=== PATIENT | male | born 1950 | race Caucasian/White ===

== ENCOUNTER 2017-07-31 21:25 | Emergency (ER) | payer OTHER ==
[2017-07-31 21:34] VITALS: RESP 18; TEMP 99.1; O2SAT 96
[2017-07-31] MEDS ORDERED: NS 1,000 ML IV ONE (22:06)
[2017-07-31 22:24] LABS: % IMMATURE GRANULYOCYTES 0.1 % (0.0-1.1); ABSOLUTE IMMATURE GRANULOCYTES 0.01 10^3/uL (0.00-0.10); ADD DIFF? NO; ADD MORPH? NO; ADD SCAN? NO; ATYPICAL LYMPHOCYTE FLAG 0 (0-99); FRAGMENT RBC FLAG 0 (0-99); HEMATOCRIT 43.9 % (40.0-51.0); LEFT SHIFT FLG 0 (0-99); LIPEMIA HEMOLYSIS FLAG 90 (0-99); MEAN CELL HEMOGLOBIN 30.2 pg (27.9-34.1); MEAN CELL HEMOGLOBIN CONCENTR. 34.2 g/dL (32.4-36.7); MEAN CELL VOLUME 88.3 fL (81.5-99.8); MEAN PLATELET VOLUME 8.6 fL (8.7-11.7); PLATELET CLUMPS FLAG 40 (0-99); PLATELET COUNT 264 10^3/uL (150-400); RED BLOOD CELL COUNT 4.97 10^6/uL (4.40-6.38); RED CELL DISTRIBUTION WIDTH 13.1 % (11.5-15.2)
[2017-07-31 22:31] LABS: INR 0.94 (0.83-1.16); PROTIME(PATIENT) 12.5 SEC (12.0-15.0)
[2017-07-31 22:32] LABS: ANION GAP 16 mEq/L (8-16); CALCIUM 9.4 mg/dL (8.5-10.4); CARBON DIOXIDE 27 mEq/l (22-31); CHLORIDE 102 mEq/L (97-110); CREATININE 1.1 mg/dL (0.7-1.3); GLOMERULAR FILTRATION RATE > 60; GLUCOSE 95 mg/dL (70-100); POTASSIUM 4.2 mEq/L (3.5-5.2); SODIUM 145 mEq/L (134-144)
--- NOTE | 2017-07-31 22:42 | EDPHY ---
H & P Stated Complaint: rectal bleeding x 30 min Time Seen by Provider: 07/31/17 21:38 HPI/ROS: This patient presents with 30 min of rectal bleeding-bright red blood. He explains that he had a normal bowel movement of normal consistency without pain and when he wipes noticed bright blood on the tissue. He has had external hemorrhoids before with small streaks of blood but never significant bleeding as he is having now. He reports that he stuffed toilet paper in the anal area to slow the bleeding and came in for evaluation. He feels slightly lightheaded while standing but admits that some of this may be anxiety from his symptoms. He has no other associated symptoms. He drove himself here by private vehicle for further evaluation. ROS: Constitutional: No significant fatigue or fevers. No other constitutional symptoms HEENT: No complaints Pulmonary: No shortness of breath. Cardiovascular: Patient has occasional heart palpitations for brief. The time usual less than a minute or 2 that he can usually resolved by coughing. This been attributed to AFib or flutter that he easily converts. He had only takes aspirin for this with had a benign workup in the past. GI: The patient has chronic intermittent mild lower belly pain with no recent changes in the patterns are intensity of pain which is generally mild. He had a CT scan of the belly within the past year to work this up with no significant findings other than some diverticulum. He also has prostatic hypertrophy : No dysuria, frequency or urgency. Integumentary: No complaints Neuro: No complaints 10 point ROS is otherwise negative Source: Patient Exam Limitations: No limitations - Personal History Current Tetanus/Diphtheria Vaccine: Yes Current Tetanus Diphtheria and Acellular Pertussis (TDAP): Yes - Medical/Surgical History Hx Asthma: No Hx Chronic Respiratory Disease: No Hx Diabetes: No Hx Cardiac Disease: No Hx Renal Disease: No Hx Cirrhosis: No Hx Alcoholism: No Hx HIV/AIDS: No Hx Splenectomy or Spleen Trauma: No Other PMH: biLateral hernia surgery, orthopedic surgeries, A FIB, SELF CONVERTS , prostate problem, colonic polyps 7 years ago on colonoscopy - Social History Smoking Status: Never smoked Alcohol Use: Occasionally Drug Use: None - Physical Exam Exam: Vital signs normal exception of mild hypertension General Appearance: Pleasant 67-year-old male no acute distress Alert, no distress. Eyes: Pupils equal and round no pallor or injection. ENT, Mouth: Mucous membranes moist. Respiratory: There are no retractions, lungs are clear to auscultation. Cardiovascular: Regular rate and rhythm. Gastrointestinal: Abdomen is soft and nontender, no masses, bowel sounds normal. Rectal exam: Small nonbleeding external hemorrhoid at 3 o'clock in lithotomy position. There is mild active bleeding the the appears to be from an internal hemorrhoid that is evident just proximal to the dentate line on exam. The patient has no tenderness on exam. The guaiac test is positive Neurological: GCS 15 with no focal deficits. Skin: Warm and dry, no rashes. Extremities are symmetrical, full range of motion. Psychiatric: Mood and affect normal DIFFERENTIAL DIAGNOSIS: After history and physical exam differential diagnosis was considered for internal hemorrhoid, colonic polyp, colon CA ache or other source of lower GI bleed. Constitutional: Initial Vital Signs Temperature (C) 37.3 C 07/31/17 21:33 Heart Rate 94 07/31/17 21:33 Respiratory Rate 18 07/31/17 21:33 Blood Pressure 160/66 H 07/31/17 21:33 O2 Sat (%) 96 07/31/17 21:33 O2 Delivery Mode Room Air Allergies/Adverse Reactions: Penicillins Allergy (Severe, Verified 06/04/12 17:53) Swelling/neck,face,throat sulfamethoxazole [From Bactrim] Allergy (Intermediate, Verified 06/04/12 17:53) Rash trimethoprim [From Bactrim] Allergy (Intermediate, Verified 06/04/12 17:53) Rash Home Medications: Medication Instructions Recorded Aspirin 81 DAILY 07/31/17 Docusate Sodium [Colace 100 MG (*)] 100 mg PO BID #30 cap 07/31/17 Medical Decision Making ED Course/Re-evaluation: IV, normal saline bolus x1 L Review of labs reveals a normal CBC, normal basic metabolic panel, normal coags Discussion: Patient with bright red blood per rectum that appears to be coming from an internal hemorrhoid. He does not have anemia or other concerning findings I explained that usually this bleeding will resolve without intervention within 24 hr. He will follow up with Dr. Bustos,[facility] this week & he understands the need to return to the emergency department should he have any significant worsening symptoms despite the treatment plan. I Did prescribe Colace stool softeners that he is not straining to have a bowel movement in worsening hemorrhoids. - Data Points Laboratory Results: Laboratory Results 07/31/17 22:15 07/31/17 22:15 Medications Given: Discontinued Medications Sodium Chloride (Ns) 1,000 mls @ 0 mls/hr IV EDNOW ONE; Wide Open PRN Reason: Protocol Stop: 07/31/17 22:07 Last Admin: 07/31/17 22:18 Dose: 1,000 mls Departure - Departure Disposition: Home, Routine, Self-Care Clinical Impression: Internal hemorrhoid, bleeding Condition: Good Instructions: Hemorrhoids (ED), Rectal Bleeding (ED) Additional Instructions: Diagnosis: Internal hemorrhoid with rectal bleeding Have no anemia today. Plan: Drink plenty fluids Colace stool softener and Metamucil to keep stools soft the do not have to strain for bowel movements. Cause in underwear for bleeding if needed. Typically this bleeding will resolve without further intervention over the course of 1 or [address] Bustos [facility] specialist to arrange close follow-up appointment for further evaluation. Return emergency department for any significant worsening despite treatment plan. Referrals: Nati Trevizo [Primary Care Provider] - As per Instructions Juan Bustos MD [Medical Doctor] - As per Instructions Prescriptions: Docusate Sodium [Colace 100 MG (*)] 100 mg PO BID #30 cap
[2017-07-31 22:52] VITALS: BP 144/88; PULSE 75
== END 2017-07-31 23:23 | disposition home or self-care (01) ==
LOC: CED 21:25
DX: K64.8 Other hemorrhoids (principal); E86.9 Volume depletion, unspecified
CPT/HCPCS: 80048-PO; 82270-PO; 85025-PO; 85610-PO; 85730-PO

== ENCOUNTER 2017-10-11 11:36 | Emergency (ER) | payer OTHER ==
[2017-10-11 11:40] VITALS: TEMP 97.9
--- NOTE | 2017-10-11 11:55 | CPEKG ---
Heart Rate: 77 RR Interval: 779 P-R Interval: 148 QRSD Interval: 88 QT Interval: 372 QTC Interval: 421 P Reliance: 44 QRS Reliance: 53 T Wave Reliance: 38 EKG Severity - NORMAL ECG - EKG Impression: SINUS RHYTHM Electronically Signed By: Joe Peoples 11-Oct-2017 20:31:59
[2017-10-11 12:26] LABS: PLATELET COUNT 274 10^3/uL (150-400)
[2017-10-11 12:42] VITALS: RESP 16
--- NOTE | 2017-10-11 12:55 | EDPHY ---
H & P Stated Complaint: 1 week sob/dizzyness with hx atrial tachycardia Time Seen by Provider: 10/11/17 12:34 HPI/ROS: CHIEF COMPLAINT: Short of breath, fatigue, lightheaded HISTORY OF PRESENT ILLNESS: This is a 67-year-old male with a history of intermittent atrial tachycardia and hyperlipidemia who presents concerned about intermittent episodes of chest pain. The chest pain is sharp, located in the left mid to upper chest, not related to any activity, and brief when it occurs. He has had this pain before but it is occurring more frequently this week. He also notes that he has had increasing fatigue and is lightheaded with a sensation of being a bit off balance intermittently. He is also winded when he goes up a flight of stairs. All this is new to him. It seems to be worsening over the last week. He was diagnosed with atrial tachycardia decades ago after wearing a Holter monitor. He continues to have intermittent episodes of a rapid or irregular heart beat that resolve on their own. He is not currently experiencing a rapid heartbeat. He is not currently experiencing chest pain. He has not had calf pain or swelling. No recent travel or immobility. He has a family history that is positive for venous thromboembolism. His father at age 60 of what was presumed to be a myocardial infarction. He has not seen his primary care physician for about 2 years. She recently relocated and he currently does not have a PCP. He has seen Dr. Paulette Landa and Dr. Tate. In addition, he notes a frontal headache. He has a history of migraines but this headache is somewhat different in nature. It occurs on and off. Tylenol and aspirin help with headache seems to return. No visual changes, numbness, weakness, confusion, difficulty with speech, head trauma, or fever. He takes 1- 2 aspirin daily. REVIEW OF SYSTEMS: A ten point review of systems was performed and is negative with the exception of the items mentioned in the HPI. Past medical history: 1. 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 Atrial tachycardia, paroxysmal 3. Hyperlipidemia 4. Migraine headaches 5. BPH Past surgical history: 1. Bilateral inguinal hernia repair 2. Laser prostate surgery 3. Orthopedic surgeries Family history: As per HPI Social history: He has been laid off from [employer]. He drinks 2 glasses of wine daily, sometimes more. He does not use tobacco products or illicit drugs. General Appearance: Alert. Vital signs reviewed. Blood pressure at triage was 141/110, repeat blood pressure 121/87. Eyes: Pupils equal and round, no conjunctival injection, no discharge. Anicteric. ENT, Mouth: Mucous membranes are moist, no oropharyngeal erythema or edema. Neck: No lymphadenopathy, supple. Respiratory: Lungs are clear to auscultation; no wheezes, rales, or rhonchi. Cardiovascular: Regular rate and rhythm; no murmur, rub, or gallop. Gastrointestinal: Abdomen is soft and nontender, no masses or organomegaly, bowel sounds normal. Skin: Warm and dry, no rashes on exposed skin, normal color. Back: Nontender to palpation over the thoracolumbar spine. No CVAT. Extremities: No lower extremity edema, no calf tenderness or swelling. Neurological: Alert and oriented. Moving all four extremities easily and equally. Cranial nerves II through XII are examined and are intact (visual acuity not tested). Strength is 5 over 5 bilaterally with testing of all major motor groups. Sensation is intact to light touch over all 4 extremities. Deep tendon reflexes are 2+ in the biceps and knees bilaterally. Gait is normal. [id number] is performed accurately. Psychiatric: Normal affect. - Personal History Current Tetanus/Diphtheria Vaccine: Unsure - Medical/Surgical History Hx Asthma: No Hx Chronic Respiratory Disease: No Hx Diabetes: No Hx Cardiac Disease: Yes Hx Renal Disease: No Hx Cirrhosis: No Hx Alcoholism: No Hx HIV/AIDS: No Hx Splenectomy or Spleen Trauma: No Other PMH: biLateral hernia surgery, orthopedic surgeries, A FIB, SELF CONVERTS , prostate problem, colonic polyps 7 years ago on colonoscopy - Social History Smoking Status: Never smoked Constitutional: Initial Vital Signs Temperature (C) 36.6 C 10/11/17 11:38 Heart Rate 93 10/11/17 11:38 Respiratory Rate 18 10/11/17 11:38 Blood Pressure 141/110 H 10/11/17 11:38 O2 Sat (%) 97 10/11/17 11:38 O2 Delivery Mode Room Air Allergies/Adverse Reactions: Penicillins Allergy (Severe, Verified 10/11/17 11:38) Swelling/neck,face,throat sulfamethoxazole [From Bactrim] Allergy (Intermediate, Verified 10/11/17 11:38) Rash trimethoprim [From Bactrim] Allergy (Intermediate, Verified 10/11/17 11:38) Rash Home Medications: Medication Instructions Recorded Aspirin 81 DAILY 07/31/17 Docusate Sodium [Colace 100 MG (*)] 100 mg PO BID #30 cap 07/31/17 Medical Decision Making - Diagnostics EKG Interpretation: EKG sinus rhythm with a rate of 77. No acute ischemic changes. ED Course/Re-evaluation: 57-year-old with intermittent chest pain, this description of which is somewhat atypical for pain of cardiac origin. Initial troponin is normal. EKG is without ischemic changes. HEART score is 3 putting him at 1.7% risk of major acute coronary event within the next 6 weeks. D-dimer is negative, making PE unlikely. Wells score for PE puts him at low risk for PE. Is not tachypneic, tachycardic, or hypoxic in the emergency department. He was ambulated with oxygen and maintained oxygen saturations of over 92%. Chest x-ray is negative for pneumonia he does not have any signs or symptoms of infection. I feel that he can safely follow up as an outpatient and he is agreeable to this plan. 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 Danger signs are reviewed with him. Differential Diagnosis: Chest pain including but not limited to myocardial ischemia, pulmonary embolus, chest wall pain, pleural inflammation and pulmonary infectious causes. - Data Points Laboratory Results: Laboratory Results 10/11/17 11:55 10/11/17 11:55 Departure - Departure Disposition: Home, Routine, Self-Care Clinical Impression: Dyspnea on exertion Headache Qualifiers: Headache type: tension-type Headache chronicity pattern: acute headache Intractability: not intractable Qualified Code(s): G44.209 - Tension-type headache, unspecified, not intractable Chest pain Qualifiers: Chest pain type: other chest pain Qualified Code(s): R07.89 - Other chest pain ; R07.8 - Other chest pain Condition: Good Instructions: Chest Pain (ED), Acute Headache (ED), Shortness of Breath (ED) Additional Instructions: Please follow up with Dr. Landa. Call her office tomorrow to schedule follow-up appointment. Let them know that you been having intermittent faster irregular the heartbeat and some shortness of breath along with some chest pain. I am referring you to a neurologist, Dr. Stoll, in case you continue with the headache that you have been experiencing. I am also referring you to a primary care doctor Dr. Anjel Hurd. Adult Pain & Fever Control: We recommend Acetaminophen (Tylenol) and Ibuprofen (Motrin,Advil) for pain and fever control. When fever is high or pain severe, both drugs can be used at the same time, but at different intervals. Please note the time differences. Your dose is: Acetaminophen 650mg every 4 to 6 hours Ibuprofen 400mg every 6 hours with food OR Note: do not take Acetaminophen with Hydrocodone (Vicodin, Lortab) or Oycodone (Percocet). These medications also contain Acetaminophen. No more than 3000mg of Acetaminophen should be taken in 24 hours (for an adult). Referrals: Anjel Hurd MD [Medical Doctor] - As per Instructions Mir Stoll MD [Medical Doctor] - As per Instructions Paulette Landa MD [Medical Doctor] - As per Instructions
[2017-10-11 15:08] VITALS: BP 128/90; PULSE 69; O2SAT 97
== END 2017-10-11 15:09 | disposition home or self-care (01) ==
DX: R06.00 Dyspnea, unspecified (principal); G44.209 Tension-type headache, unspecified, not intractable; R07.89 Other chest pain; Z79.82 Long term (current) use of aspirin

== ENCOUNTER → 2017-11-10 | Outpatient (CLI) | payer OTHER | LOC: BHFA 09:00 | PROVIDERS: ATTEND Internal Medicine Cardiovascular Disease | DX: I48.91 Unspecified atrial fibrillation (principal); R07.9 Chest pain, unspecified | CPT/HCPCS: 78452; 93017; A9500 ==

== ENCOUNTER → 2017-11-12 | Outpatient (CLI) | payer OTHER | LOC: BHFA 15:30 | PROVIDERS: ATTEND Internal Medicine Cardiovascular Disease | DX: R07.9 Chest pain, unspecified (principal) ==

== ENCOUNTER 2018-02-13 15:55 | Emergency (ER) | payer OTHER ==
[2018-02-13] MEDS ORDERED: GLUCAGON HCL 1 MG VIAL IVP ONE (16:19)
--- NOTE | 2018-02-13 16:30 | EDPHY ---
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 EGGS . hx of same in past. Time Seen by Provider: 02/13/18 16:08 HPI/ROS: 67 yo M presents c/o food stuck in his esophagus, he was eating eggs about 2 hours ago, this has happened before but lower in the esophagus. He is currently spitting out all of his saliva. No chest pain, no difficulty breathing. Review of systems As per HPI General no fever no chills no weakness HEENT no eye pain no eye discharge. No eye redness, no sore throat Respiratory no cough, no shortness of breath Cardiac no chest pain, no peripheral edema GI no abdominal pain, no diarrhea, no constipation, no nausea, no vomiting no flank pain, no hematuria, no dysuria Musculoskeletal no myalgias, no joint pain Heme no easy bruising, no easy bleeding Endo no polyuria, no polydipsia Skin no rashes, no pruritus Neuro no syncope, no dizziness, no headaches Psych is no suicidal ideation, no homicidal ideation Source: Patient Exam Limitations: No limitations - Personal History Current Tetanus Diphtheria and Acellular Pertussis (TDAP): Yes - Medical/Surgical History Hx Asthma: No Hx Chronic Respiratory Disease: No Hx Diabetes: No Hx Cardiac Disease: Yes Hx Renal Disease: No Hx Cirrhosis: No Hx Alcoholism: No Hx HIV/AIDS: No Hx Splenectomy or Spleen Trauma: No Other PMH: biLateral hernia surgery, orthopedic surgeries, A FIB, SELF CONVERTS , prostate problem, colonic polyps 7 years ago on colonoscopy - Family History Significant Family History: No pertinent family hx - Social History Smoking Status: Never smoked Alcohol Use: Rarely Drug Use: None - Physical Exam Exam: 67-year-old male alert and oriented moderate distress secondary cyst to esophageal obstruction, holding a cup spitting his saliva into a cup Afebrile, vital signs stable HEENT atraumatic normocephalic, extraocular muscles intact, anicteric Oropharynx negative for erythema negative exudate, tolerating her own secretions Neck supple no meningismus, no stridor Lungs clear to auscultation bilaterally, no wheezing Heart regular rate and rhythm without murmur rub or gallop Abdomen nondistended normoactive bowel sounds soft nontender Back no CVA tenderness, no step-offs, no spinal tenderness Extremities no cyanosis clubbing or edema Neuro alert and oriented, no focal deficits Constitutional: Initial Vital Signs Heart Rate 94 02/13/18 16:01 Respiratory Rate 16 02/13/18 16:01 Blood Pressure 147/105 H 02/13/18 16:01 O2 Sat (%) 94 02/13/18 16:01 O2 Delivery Mode Room Air Allergies/Adverse Reactions: Penicillins Allergy (Severe, Verified 02/13/18 16:05) Swelling/neck,face,throat sulfamethoxazole [From Bactrim] Allergy (Intermediate, Verified 02/13/18 16:05) Rash trimethoprim [From Bactrim] Allergy (Intermediate, Verified 02/13/18 16:05) Rash Home Medications: Medication Instructions Recorded Aspirin 81 DAILY 07/31/17 IMITREX 02/13/18 Viagra 02/13/18 Medical Decision Making ED Course/Re-evaluation: Patient seen and evaluated for esophageal food impaction. Has history of prior food impaction, history of esophageal stricture IV established Patient given 1 L normal saline and 1 mg of glucagon IV push No relief Patient given 5 mg diazepam IV push Considerably more relaxed however no relief from obstruction Nitroglycerin considered however patient on sildenafil, therefore not given. 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 Differential Diagnosis: Differential diagnosis considered but not limited to: Esophageal food impaction - Data Points Medications Given: Discontinued Medications Diazepam (Valium) 5 mg IVP EDNOW ONE Stop: 02/13/18 16:56 Last Admin: 02/13/18 17:10 Dose: 5 mg Glucagon (Glucagon) 1 mg IVP EDNOW ONE Stop: 02/13/18 16:20 Last Admin: 02/13/18 16:32 Dose: 1 mg Sodium Chloride (Ns) 1,000 mls @ 0 mls/hr IV EDNOW ONE; Wide Open PRN Reason: Protocol Stop: 02/13/18 16:37 Last Admin: 02/13/18 16:20 Dose: 1,000 mls Morphine Sulfate (Morphine) 4 mg IVP EDNOW ONE Stop: 02/13/18 17:46 Last Admin: 02/13/18 17:56 Dose: 4 mg Departure - Departure Disposition: Home, Routine, Self-Care Clinical Impression: Food impaction of esophagus Condition: Good Instructions: Esophageal Foreign Body (ED) Additional Instructions: Follow up with your primary care physician or your steel chipper. Referrals: NONE *PRIMARY CARE P,. [Primary Care Provider] - As per Instructions
[2018-02-13] MEDS ORDERED: NS 1,000 ML IV ONE (16:36)
[2018-02-13] MEDS ORDERED: DIAZEPAM 10 MG/2 ML SYR IVP ONE (16:55)
[2018-02-13 18:26] VITALS: BP 139/92
== END 2018-02-13 18:36 | disposition home or self-care (01) ==
LOC: CED 15:55
DX: T18.120A Food in esophagus causing compression of trachea, initial encounter (principal); E86.9 Volume depletion, unspecified; Z79.82 Long term (current) use of aspirin; X58.XXXA Exposure to other specified factors, initial encounter; Y99.8 Other external cause status; Y93.89 Activity, other specified
CPT/HCPCS: 96361; 96374; 96375; 99284; J1610; J2270; J3360

== ENCOUNTER → 2018-05-19 | Day surgery (SDC) | payer OTHER ==
[~2018-05-19] MED LIST: ASPIRIN EC 325 MG TAB PO ONE; ATROPINE SULFATE 1 MG/10 ML SYR IVP PRN; DIAZEPAM 5 MG TAB PO ONE; FAMOTIDINE 20 MG TAB PO ONE; HYDROCODONE/APAP 5/325 TAB PO PRN; IOPAMIDOL (ISOVUE-370) 150 ML BTL IV ONE; LIDOCAINE 1% 300 MG/30 ML SDV ONE; MIDAZOLAM 2 MG/2 ML VIAL ONE; NITROGLYCERIN 0.4 MG BTL SL PRN; NS 1,000 ML IV ONE; ONDANSETRON 4 MG/2 ML VIAL IVP PRN; OXYCODONE/APAP 5/325 TAB PO PRN; diphenhydrAMINE 25 MG CAP PO ONE; fentaNYL 100 MCG/2 ML INJ ONE
[2018-05-19 08:36] LABS: PLATELET COUNT 275 10^3/uL (150-400)
[2018-05-19 09:26] LABS: INR 0.99 (0.83-1.16); PROTIME(PATIENT) 13.3 SEC (12.0-15.0)
--- NOTE | 2018-05-19 09:31 | PDPROPOC ---
Sedation Plan of Care Sedation Plan of Care: vital signs stable, mental status noted, patient educated of risks, benefits, alternatives, patient can tolerate sedation ASA Classification: ASA 2 Planned drugs: fentanyl, midazolam Mallampati Score: Class 2 Mallampati Reference Image: Patient passed 3-3-2 rule?: Yes
--- NOTE | 2018-05-19 09:32 | PDHPUP ---
History & Physical Update H&P update statement: This history and physical update is based on an assessment of the patient which was completed after admission or registration (within 24 hours), but prior to the surgery/procedure. H&P update: H&P reviewed & patient examined, no change in patient's condition since H&P completed (Reviewed Dr. Swan's note dated 05/13/2018)
--- NOTE | 2018-05-19 11:28 | PDDXCAT ---
Diagnostic Cath Note - . Date: 05/19/18 Shift Commander: Cordell Indication: Patient w angina/susp CAD, cannot be risk stratified by other means - Procedure Access: right groin Procedure: left heart catheterization, coronary angiography, left ventriculogram , right heart catheterization - Materials Left Heart Cath size: 6F Left Heart Cath materials: JL4.0, Kervin's R Right Heart Cath size: 7F Right Heart Cath materials: PWP catheter - Findings-Left Heart Catheterization LM: Normal and bifurcates in the LAD and left circumflex. LAD: Moderate-sized vessel reaching the apex. 1 principal branching diagonal. No significant coronary disease in the LAD or its diagonal branch. LCX: 1 small obtuse marginal and 1 large branching obtuse marginal. There is 30 -40% ostial left circumflex disease with BASILIO 3 flow in the remainder of the vessel. RCA: Is small but dominant. No significant coronary disease. EDP: 15. LVEF: 65% Wall motion: Normal - Findings-Right Heart Catheterization RA: 8 RV: 27/3 PA: 24/10 with a mean of 16 PAOP: 7 AO: 129/76. No aortic stenosis CO: 5.65 liters/minute using the Jaret method. The patient was breathing room air. Cardiac index is 2.84 liters/minute per meter squared. There is no step- up in oxygen saturation between right heart chambers. Complications: None Estimated blood loss: <50ml Closure method: Angioseal Assessment: Non flow-limiting left circumflex disease. Normal right and left heart filling pressures. No aortic stenosis. Normal left ventricular ejection fraction. Plan: Continue aspirin. Add statin for his LDL cholesterol of 138 and left circumflex disease. Follow-up for groin check and ongoing risk factor management. Evaluate for noncardiac causes of chest pain and dyspnea. Intervention: None Patient Problems: Problems Problem Status Onset Dyspnea on exertion Acute Headache Acute
--- NOTE | 2018-05-20 06:11 | CPEKG ---
Test Reason : OPEN Blood Pressure : / mmHG Vent. Rate : 080 BPM Atrial Rate : 079 BPM P-R Int : 142 ms QRS Dur : 091 ms QT Int : 379 ms P-R-T Axes : 048 045 053 degrees QTc Int : 438 ms Sinus rhythm Confirmed by Luke Arellano ([id number]) on 05/20/2018 6:11:20 AM Referred By: Confirmed By:Luke Arellano
== END | disposition home or self-care (01) ==
LOC: FCATH 07:58
PROVIDERS: ATTEND Internal Medicine Cardiovascular Disease
DX: R07.89 Other chest pain (principal); R06.02 Shortness of breath; Q21.1 Atrial septal defect; R00.2 Palpitations
CPT/HCPCS: C1760; J1200; J1644; J2250; J3010; Q9967

== ENCOUNTER 2018-05-20 13:48 | Emergency (ER) | payer OTHER ==
--- NOTE | 2018-05-20 14:16 | EDPHY ---
H & P Stated Complaint: "pop" at cath site Time Seen by Provider: 05/20/18 14:10 HPI/ROS: CHIEF COMPLAINT: [place] a pop at cardiac catheterization site HISTORY OF PRESENT ILLNESS: 68-year-old male status post cardiac catheterization yesterday presents after feeling a pop at the right groin site. While having a bowel movement just prior to arrival, he felt a pop in the right groin, followed by swelling. Pain has resolved. Mild swelling continues. REVIEW OF SYSTEMS: complete 10 point ROS reviewed and is negative except for the noted elements in the HPI - Personal History Current Tetanus/Diphtheria Vaccine: Yes Current Tetanus Diphtheria and Acellular Pertussis (TDAP): Yes - Medical/Surgical History Hx Asthma: No Hx Chronic Respiratory Disease: No Hx Diabetes: No Hx Cardiac Disease: Yes Hx Renal Disease: No Hx Cirrhosis: No Hx Alcoholism: No Hx HIV/AIDS: No Hx Splenectomy or Spleen Trauma: No Other PMH: biLateral hernia surgery, orthopedic surgeries, A FIB, SELF CONVERTS , prostate problem, colonic polyps 7 years ago on colonoscopy - Social History Smoking Status: Never smoked - Physical Exam Exam: General Appearance: Alert, pleasant Eyes: Pupils equal and round ENT, Mouth: Mucous membranes moist Neck: Normal inspection Respiratory: Lungs are clear to auscultation Cardiovascular: Regular rate and rhythm Gastrointestinal: Abdomen is soft and nontender Groin: Slight tenderness in the right groin with mild swelling, no pulsatile mass Neurological: A&O, nonfocal, walks with a normal gait Skin: Warm and dry Extremities: Normal inspection Psychiatric: Mood and affect normal Constitutional: Initial Vital Signs Temperature (C) 36.8 C 05/20/18 13:51 Heart Rate 92 05/20/18 13:51 Respiratory Rate 18 05/20/18 13:51 Blood Pressure 152/103 H 05/20/18 13:51 O2 Sat (%) 98 05/20/18 13:51 O2 Delivery Mode Room Air Allergies/Adverse Reactions: Penicillins Allergy (Severe, Verified 02/13/18 16:05) Swelling/neck,face,throat sulfamethoxazole [From Bactrim] Allergy (Intermediate, Verified 02/13/18 16:05) Rash trimethoprim [From Bactrim] Allergy (Intermediate, Verified 02/13/18 16:05) Rash Home Medications: Medication Instructions Recorded ALPRAZolam [Xanax 0.25 MG (*)] 0.125 mg PO HS PRN 05/17/18 Acetaminophen [Tylenol ES 500 mg 500 mg PO HS 05/17/18 (*)] Aspirin [Aspirin 325 mg (*)] 325 mg PO DAILY 05/17/18 Fluticasone Nasal [Flonase Nasal 1 sprays NASAL DAILY 05/17/18 [place]] SUMAtriptan [Imitrex Sc Injection] 6 mg SQ DAILY PRN 05/17/18 Sildenafil Citrate [Viagra 25 MG 25 mg PO DAILY PRN 05/17/18 (*)] Atorvastatin Calcium 20 mg PO DAILY #30 tablet 05/19/18 Medical Decision Making ED Course/Re-evaluation: Ultrasound reveals a tiny pseudoaneurysm. Consulted Dr. Landa, direct pressure placed by labor arbitrator hearing office staff in the ED for the recommended time. Will f/u tomorrow for recheck and repeat ultrasound. - Data Points Medications Given: Discontinued Medications Fentanyl (Sublimaze) 50 mcg IVP EDNOW ONE Stop: 05/20/18 15:27 Last Admin: 05/20/18 15:27 Dose: 50 mcg Fentanyl (Sublimaze) 50 mcg IVP EDNOW ONE Stop: 05/20/18 15:36 Last Admin: 05/20/18 15:39 Dose: 50 mcg Departure - Departure Disposition: Home, Routine, Self-Care Clinical Impression: Pseudoaneurysm following procedure Condition: Good Instructions: Pseudoaneurysm (ED) Referrals: Ramon Butterfield MD [Primary Care Provider] - As per Instructions Paulette Landa MD [Medical Doctor] - As per Instructions (Followup tomorrow with Dr. Landa. Have your ultrasound prior to your appointment.)
[2018-05-20] MEDS ORDERED: fentaNYL 100 MCG/2 ML INJ ONE (15:18)
[2018-05-20] MEDS ORDERED: fentaNYL 100 MCG/2 ML INJ IVP ONE ×2 (15:26→15:35)
[2018-05-20 16:36] VITALS: BP 143/90
== END 2018-05-20 16:36 | disposition home or self-care (01) ==
LOC: EDUNIT#
DX: I97.89 Other postprocedural complications and disorders of the circulatory system, not elsewhere classified (principal); I72.9 Aneurysm of unspecified site
CPT/HCPCS: 93990; 96374; 96375; 99285; J3010

== ENCOUNTER → 2018-05-21 | Outpatient (CLI) | payer OTHER | LOC: FIMAGING 13:49 | PROVIDERS: ATTEND Internal Medicine Cardiovascular Disease | PROC: B54BZZA Ultrasonography of Right Lower Extremity Veins, Guidance (ICD-10-PCS; principal; 2018-05-21) | DX: I74.3 Embolism and thrombosis of arteries of the lower extremities (principal); I72.4 Aneurysm of artery of lower extremity ==

== ENCOUNTER → 2018-06-04 | Outpatient (CLI) | payer OTHER | LOC: BHFA 14:00 | PROVIDERS: ATTEND Internal Medicine Cardiovascular Disease | DX: R00.2 Palpitations (principal) ==

== ENCOUNTER → 2018-06-29 | Outpatient (CLI) | payer OTHER | LOC: FIMAGING 15:14 | PROVIDERS: ATTEND Internal Medicine Cardiovascular Disease | DX: R07.9 Chest pain, unspecified (principal) ==

== ENCOUNTER → 2018-09-14 | Outpatient (CLI) | payer OTHER | LOC: FIMAGING 15:12 | PROVIDERS: ATTEND Internal Medicine Cardiovascular Disease | DX: K40.90 Unilateral inguinal hernia, without obstruction or gangrene, not specified as recurrent (principal); R10.30 Lower abdominal pain, unspecified ==